=== PATIENT | female | born 1960 | race Caucasian/White ===

== ENCOUNTER → 2020-01-17 | Day surgery (SDC) | payer OTHER ==
[2020-01-11 09:34] LABS: Basophils # (auto) 0.1 10 ^3/uL (0-0.2); Basophils % (auto) 0.6 % (0.0-2.0); Eosinophils # (auto) 0.1 10 ^3/uL (0-0.8); Eosinophils % (auto) 1.4 % (0.0-7.0); Hemoglobin 15.1 g/dL (12.2-16.2); Lymphocytes # (auto) 2.6 10 ^3/uL (0.4-5.4); Lymphocytes % (auto) 32.1 % (10.0-50.0); Mean Corpuscular Hemoglobin 30.2 pg (28.0-32.0); Mean Corpuscular Hgb Conc. 35.1 g/dL (32.0-36.0); Mean Corpuscular Volume 86.1 fL (80.0-100.0); Monocytes # (auto) 0.5 10 ^3/uL (0-1.3); Monocytes % (auto) 5.9 % (0.0-12.0); Neutrophils # (auto) 4.9 10 ^3/uL (1.6-8.6); Nucleated Red Blood Cells % 0.1 %; Platelet Count (auto) 244 10^3/uL (140-450); Red Cell Distribution Width 14.6 % (11.8-14.3); White Blood Cell 8.2 10^3/uL (4.4-10.8)
[2020-01-11 09:44] LABS: Urine Bacteria NONE SEEN /hpf (None Seen); Urine Blood Negative /uL (Negative); Urine Specific Gravity 1.006 (1.001-1.035); Urine WBC <1 /hpf (0 - 5)
[2020-01-11 10:00] LABS: INR 0.9 (0.9-1.15); Partial Thromboplastin Time 24.6 sec (23.0-31.2)
[2020-01-11 10:34] LABS: Albumin 4.3 g/dL (3.4-5.0); Calcium 9.2 mg/dL (8.5-10.1); Potassium 4.1 mmol/L (3.5-5.1)
[2020-01-11 10:36] LABS: BUN/Creatinine Ratio 14.5; Total Protein 8.2 g/dL (6.4-8.2)
[~2020-01-17] VITALS: Ht 170.2 cm; Wt 71.2 kg
[~2020-01-17] MED LIST: ATOR40TA52 PO; CIPROFLOXACIN 400MG/200ML 200 ML IV ONE; CONJ ESTROGENS 0.625MG/GM VAG CRM 30GM PV ONE; FLUT1SPR21; FURO20TA3 PO; HYDR-4833 PO; HYDROmorphone HCL 2 MG/ML VL IV PRN; IBUP800T24 PO; LIDOCAINE 1% (LOCAL ANESTH.) PF 5ml SDV ONE; LIDOCAINE W/ EPINEPHRINE 1% 20ML VIAL ONE; MAGN400T40 PO; NALOXONE HCL 0.4 MG/ML VIAL IV PRN; NORT10CA PO; OMEP20TA PO; ONDANSETRON HCL 4 MG/2 ML VIAL IV PRN; SUCCINYLCHOLINE CHLORIDE 20 MG/ML 10ML VIAL IV ONE; SUMA100T15 PO; ceFAZolin 1GM VL ONE
[2020-01-17 11:00] VITALS: BP 124/69
== END | disposition home or self-care (01) ==
LOC: SUR 07:33
PROVIDERS: ATTEND Urology
DX: N81.10 Cystocele, unspecified (principal); N39.3 Stress incontinence (female) (male); I10 Essential (primary) hypertension; G89.29 Other chronic pain; K21.9 Gastro-esophageal reflux disease without esophagitis; G47.33 Obstructive sleep apnea (adult) (pediatric); M19.90 Unspecified osteoarthritis, unspecified site; M51.9 Unspecified thoracic, thoracolumbar and lumbosacral intervertebral disc disorder; Z98.51 Tubal ligation status; Z20.828 Contact with and (suspected) exposure to other viral communicable diseases
CPT/HCPCS: 36415; 57220; 57240; 57288; 80053; 81001; 85025; 85610; 85730; 88302; C1763; C2631; J0330; J0690; J0744; Q4170; U0003